=== PATIENT | female | born 1970 | race Caucasian/White ===

== ENCOUNTER 2018-09-03 09:09 | Emergency (ER) | payer BC ==
[~2018-09-03] VITALS: Ht 177.8 cm; Wt 74.8 kg
[2018-09-03 09:10] VITALS: BP_SYST 122
--- NOTE | 2018-09-03 09:10 | NUR ---
BROUGHT BACK TO BED #5 AND TRIAGED. REPORT GIVEN JEISON
--- NOTE | 2018-09-03 09:25 | NUR ---
Pt presents to ER c/o low back pain 8/10 on pain scale radiating to both legs. Pt denies any other symptoms, denies chest pain or sob, denies nausea or vomiting. Pt AOX4, ambulatory, no signs of acute distress, speaking full sentences.
--- NOTE | 2018-09-03 10:00 | NUR ---
ER at bedside examining patient.
--- NOTE | 2018-09-03 10:21 | NUR ---
Patient given written and verbal discharge instructions and verbalizes understanding. ER MD discussed with patient the results and treatment provided. Patient in stable condition. ID arm band removed. No Rx given. Patient educated on pain management and to follow up with PMD. Pain Scale 2/10 tolerable for patient. Opportunity for questions provided and answered. Medication side effect fact sheet provided.
[2018-09-03 10:22] VITALS: BP_SYST 106
== END 2018-09-03 10:21 | disposition home or self-care (01) ==
LOC: SED 09:09
DX: M54.5 Low back pain (principal); F20.9 Schizophrenia, unspecified; E89.0 Postprocedural hypothyroidism
CPT/HCPCS: 99281